=== PATIENT | female | born 1995 | race African-American/Black ===

== ENCOUNTER 2020-01-31 13:05 | Outpatient (REF) | payer MEDICAID, OTHER, SELFPAY ==
--- NOTE | 2020-01-31 | US_ITS ---
EXAMINATION: US DIAGNOSTIC ULTRASOUND BREAST, LEFT CLINICAL INFORMATION: Abnormal clinical breast exam. The patient noted a lump for the past month. No pain. No discharge. COMPARISON: Initial exam. TECHNIQUE: Ultrasound of the breast is performed with real-time eldridge scale imaging and color Doppler. FINDINGS: There is a circumscribed oval homogeneous hypoechoic solid mass immediately beneath the skin in the 2:00 position 5 cm from the left nipple. This corresponds to the area of palpable concern. There is posterior enhancement. There is no color signal. The mass measures 1.3 x 0.9 x 1.4 cm. Results are discussed with the patient at time of visit. The patient speaks [place]ian [place]. A telephone legal transcriber was utilized to discussed the findings and recommendations. Management options including surgery, image guided biopsy and close imaging follow-up were reviewed. The patient is comfortable with short interval follow-up and the patient confirmed understanding the need for short interval follow-up in 6 months. US/US breast LT limited IMPRESSION: Probably benign oval solid mass in the area of palpable concern. Diagnostic possibilities include fibroadenoma. Recommend short interval follow-up targeted left breast ultrasound. The patient was advised to return sooner if she believes there has been interval increase ASSESSMENT: BI-RADS 3: Probably Benign RECOMMENDATION: Diagnostic ultrasound in 6 months. This patient's information was entered into a reminder system with a target due date for their next mammogram.
== END 2020-01-31 13:06 | disposition home or self-care (01) ==
LOC: HO.MAMMO 13:05
PROVIDERS: Visit Provider Emergency Medicine
DX: N63.20 Unspecified lump in the left breast, unspecified quadrant (principal)
CPT/HCPCS: 76642

== ENCOUNTER 2020-08-05 13:05 | Outpatient (REF) | payer MEDICAID, OTHER, SELFPAY ==
--- NOTE | ~2020-08-05 | US_ITS ---
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 Patient currently approximately 1 month . COMPARISON: Targeted left breast ultrasound 01/31/2020. TECHNIQUE: Ultrasound left breast is targeted to the upper outer quadrant. Grayscale imaging and color Doppler are performed without and with harmonics. FINDINGS: The solid mass at site of palpable concern 2:00 position 5 cm from nipple is slightly increased in size. Current measurements are 2.0 x 1.8 x 1.2 cm compared with prior measurements 1.4 x 1.3 x 0.9 cm. The margins are circumscribed. There is no interval new cystic or solid mass in this area. No skin thickening or edema tracking in soft tissue planes. Results are discussed with the patient at time of visit using an boning room worker. Ultrasound-guided core sampling is recommended. Results and recommendation called to office ([place]) for Dr. Yu on 08/05/2020. US/US breast LT limited IMPRESSION: The solid mass for follow-up 2:00 position left breast is slightly increased in size, currently 2.0 cm. ASSESSMENT: BI-RADS 4: Suspicious (subcategory 4A: Low suspicion for malignancy) RECOMMENDATION: Ultrasound-guided core biopsy left breast mass. This patient's information was entered into a reminder system with a target due date for their next mammogram.
== END 2020-08-05 13:06 | disposition home or self-care (01) ==
LOC: HO.MAMMO 13:05
PROVIDERS: PCP Internal Medicine; Visit Provider Internal Medicine
DX: N63.21 Unspecified lump in the left breast, upper outer quadrant (principal)
CPT/HCPCS: 76642